=== PATIENT | female | born 1985 | race Asian ===

== ENCOUNTER → 2021-08-09 09:00 | Outpatient (BNVA) | payer OTHER, SELFPAY | PROVIDERS: Visit Provider Internal Medicine Pulmonary Disease | DX: Z20.822 Contact with and (suspected) exposure to COVID-19 (principal); Z20.828 Contact with and (suspected) exposure to other viral communicable diseases | CPT/HCPCS: 87426 ==

== ENCOUNTER → 2022-12-02 10:06 | Outpatient (BNVA) | payer OTHER, SELFPAY | PROVIDERS: Visit Provider Family Medicine | DX: R21 Rash and other nonspecific skin eruption (principal); Z13.6 Encounter for screening for cardiovascular disorders; Z86.39 Personal history of other endocrine, nutritional and metabolic disease | CPT/HCPCS: 80053; 80061; 82306; 82607; 82728; 82785; 83550; 84443; 85025; 86003 ==

== ENCOUNTER 2023-02-24 10:30 | Outpatient (CLI) | payer SELFPAY ==
[2023-02-24 11:28] LABS: HF Add Manual Diff No
[2023-02-24 11:36] LABS: Basophils % 0.7 %; Eosinophils # 0.1 10^3/uL (0.0-0.8); Eosinophils % 1.9 %; Hematocrit 35.8 % (37.0-47.0); Hemoglobin 11.8 g/dL (11.5-15.3); Lymphocytes # 2.2 10^3/uL (0.8-4.8); Lymphocytes % 38.1 %; Mean Corpuscular Hemoglobin 28.6 pg (28.0-34.0); Mean Corpuscular Volume 86.9 fl (81-99); Mean Platelet Volume 12.7 fL (7.4-10.4); Monocytes # 0.3 10^3/uL (0.2-0.9); Monocytes % 5.4 %; Neutrophils # 3.05 10^3/uL (1.8-7.7); Neutrophils % 53.5 %; Nucleated Red Blood Cells % 0 %; Platelet Count 186 10^3/cmm (130-400); Red Blood Count 4.12 10^6/uL (4.1-5.3); Red Cell Distribution Width 13.2 % (12.1-15.1); White Blood Count 5.7 10^3/uL (4.0-10.0)
[2023-02-24 11:55] LABS: Estmated Average Glucose 108; Hemoglobin A1C 5.4 % (4.0-6.0)
[2023-02-24 11:57] LABS: Alanine Aminotransferase 8 U/L (0-33); Albumin Level 4.5 g/dL (3.5-5.2); Alkaline Phosphatase 57 U/L (35-105); Anion Gap 11.7 (5-19); Aspartate Amino Transferase 14 U/L (0-32); Blood Urea Nitrogen 7 mg/dL (6-20); Calcium 8.9 mg/dL (8.5-10.5); Carbon Dioxide 28 mmol/L (22-29); Chloride 106 mmol/L (98-107); Chol HDL Ratio 5.47 mg/dL (0.0-4.40); Cholesterol 186 mg/dL (0-200); Globulin 2.6 g/dL (1.3-4.6); Glomerular Filtration Rate 137.4 mL/min (90-130); Glucose 86 mg/dL (65-115); HDL Cholesterol 34 mg/dL (60-100); LDL Cholesterol Calculated 127 mg/dL (50-129); LDL HDL Ratio 3.74 RATIO (0.00-3.22); Osmolality Calculated 289 mOsm/kg (285-295); Potassium 4.7 mmol/L (3.5-5.1); Sodium 141 mmol/L (136-145); Total Bilirubin 0.3 mg/dL (0.15-1.2); Total Protein 7.1 g/dL (6.6-8.7); Triglycerides 127 mg/dL (0-150)
== END 2023-02-24 10:31 | disposition home or self-care (01) ==
PROVIDERS: PCP Family Medicine; Visit Provider Dermatology
DX: Z01.89 Encounter for other specified special examinations (principal)
CPT/HCPCS: 36415

== ENCOUNTER → 2023-07-10 15:12 | Outpatient (BNVA) | payer OTHER, SELFPAY | PROVIDERS: PCP Family Medicine; Visit Provider Family Medicine | DX: R10.13 Epigastric pain (principal); Z01.419 Encounter for gynecological examination (general) (routine) without abnormal findings | CPT/HCPCS: 87624 ==

== ENCOUNTER 2023-07-24 08:08 | Outpatient (CLI) | payer OTHER, SELFPAY | END 2023-07-24 08:09 | disposition home or self-care (01) | PROVIDERS: PCP Family Medicine; Visit Provider Family Medicine | DX: R10.13 Epigastric pain (principal) | CPT/HCPCS: 87338 ==

== ENCOUNTER 2023-10-26 09:22 | Outpatient (CLI) | payer OTHER, SELFPAY ==
--- NOTE | 2023-10-26 09:30 | MR_ITS ---
WS: [id number] MRI HEAD WITHOUT CONTRAST TECHNIQUE: Sagittal T1, T2 axial, T2 axial FLAIR, axial and coronal T1 images, axial susceptibility w eighted imaging, axial diffusion weighted images, and coronal T2 images were obtained. CLINICAL INFORMATION: change in headache pattern COMPARISON: None. FINDINGS: No evidence of restricted diffusion to suggest acute ischemia. Ventricular system and basilar cistern s are patent. A few tiny foci of T2 hyperintensity in the periventricular white matter nonspecific in a patient of this age but can be seen with migraine headaches. Normal posterior fossa. Normal vascul ar flow voids at the skull base. No extra-axial fluid collections. No evidence of mass or mass effect . Polypoid mucosal thickening in the paranasal sinuses. Retention cyst or polyp LEFT maxillary sinus me asuring 2.2 x 1.5 cm. Normal posterior nasopharynx. Mastoid air cells are well aerated. Mild mucosal thickening LEFT mastoid tip. Normal parapharyngeal fat. No hemosiderin on susceptibility-weighted ever[place] ges. Normal optic chiasm and pituitary infundibulum. Temporal lobes and hippocampal formations are no rmal in appearance. IMPRESSION: 1. No evidence of restricted diffusion to suggest acute ischemia. 2. A few tiny foci of T2 hyperintensity in the periventricular white matter are nonspecific in a pat ient of this age but can be seen with migraine headaches. 3. Polyploid mucosal thickening in the paranasal sinuses. Retention cyst or polyp LEFT maxillary sin us measuring 2.2 x 1.5 cm. 4. Mild mucosal thickening LEFT mastoid tip. 5. No hemosiderin on susceptibly weighted images. 6. No other suspicious findings.
== END 2023-10-26 09:23 | disposition home or self-care (01) ==
LOC: RAD 09:22
PROVIDERS: PCP Family Medicine; Visit Provider Family Medicine
DX: R51.9 Headache, unspecified (principal)
CPT/HCPCS: 70551